=== PATIENT | male | born 1945 | race Caucasian/White ===

== ENCOUNTER 2021-06-19 17:33 | Inpatient (IN) | payer MEDICARE ==
[~2021-06-19] VITALS: Ht 177.8 cm; Wt 79.4 kg
[2021-06-19 19:12] LABS: HEMOGLOBIN 16.8 gm/dl (14.0-17.5); RED BLOOD COUNT 5.64 M/UL (4.20-5.50); WHITE BLOOD COUNT 25.3 K/UL (4.5-11.0)
--- NOTE | 2021-06-20 12:53 | NUR ---
dr. lombardi spoken to daughter and patient. patient decided not to go home today and requested to stay. concerned of pain management at home and use of sling and back brace.
--- NOTE | 2021-06-20 13:01 | NUR ---
notified dr. hanna and harjit of patient not leaving today
--- NOTE | 2021-06-21 01:47 | NUR ---
PT RECIEVED FROM MED SURG. PTS PUPILS ARE PINPOINT AND NON REACTIVE BILATERALLY, AND HE IS VOMITING. PT IS ALERT AND TALKING BUT STATES, " I FEEL LIKE IM GOING TO ." BP IS 197/[address] ROMAN AND STAT ORDER PLACED FOR HEAD CT WO CONTRAST.
--- NOTE | 2021-06-21 01:50 | NUR ---
PT TAKEN TO CT VIA BED WITH RN, TECH AND RESPIRATORY THERAPY. PT ON MONITOR AND 15L NRB MASK. PLACED BACK INTO ROOM AND ON MONITOR.
--- NOTE | 2021-06-21 02:10 | NUR ---
PT VOMITING AND BP IS 210/116. NOTIFIED DR ROMAN AND ORDERS RECIEVED AND PLACED.
--- NOTE | 2021-06-21 02:27 | NUR ---
0003 PATIENT STARTED TO FEEL NAUSEATED, I ELEVATED THE HEAD OF THE BED AND GAVE HIM AN EMESIS BAG. PATIENT WAS DIAPHORETIC AND BEGAN TO VOMIT. I OBTAINED VITALS AND A BGL ON PATIENT. BGL WAS 165 AND VS WERE WNL EXCEPT HIS O2 SAT WAS 72. A NON REBREATHER MASK WAS PLACED ON THE PATIENT AT 15L. DR ROMAN WAS NOTIFIED, A STAT CHEST XRAY WAS OBTAINED WERE ABG'S. DR ROMAN REQUESTED PATIENT BE TRANSFERED TO PCU. OREDERS WERE PUT IN AND PATIENT WAS TRANSFERED TO PCU.
[2021-06-21 11:18] LABS: HEMOGLOBIN 13.4 gm/dl (14.0-17.5); RED BLOOD COUNT 4.58 M/UL (4.20-5.50); WHITE BLOOD COUNT 17.3 K/UL (4.5-11.0)
[2021-06-21 11:45] LABS: BUN/CREATININE RATIO 17 (0-10)
[2021-06-22 04:20] LABS: HEMOGLOBIN 12.4 gm/dl (14.0-17.5); WHITE BLOOD COUNT 13.1 K/UL (4.5-11.0)
[2021-06-22 04:22] LABS: RED BLOOD COUNT 4.05 M/UL (4.20-5.50)
[2021-06-22 04:32] LABS: BUN/CREATININE RATIO 21 (0-10)
[2021-06-22] MEDS ORDERED: PERCOCET 5/325 T1 EA PO (14:32)
[2021-06-23 02:53] LABS: HEMOGLOBIN 11.9 gm/dl (14.0-17.5); RED BLOOD COUNT 4.13 M/UL (4.20-5.50)
[2021-06-23 03:20] LABS: BUN/CREATININE RATIO 22 (0-10)
[2021-06-23 03:29] LABS: WHITE BLOOD COUNT 9.7 K/UL (4.5-11.0)
== END 2021-06-23 12:54 | disposition home health service (06) | DRG 552 ==
LOC: ER1 17:33 → M/S 22:31 → CDU 22:31 → M/S 06-20 00:51 → PROG CARE 06-21 01:36
PROVIDERS: Internal Medicine; Physician Assistant; Physician Assistant Medical; ADMIT Surgery
DX: S32.020A Wedge compression fracture of second lumbar vertebra, initial encounter for closed fracture (principal); S22.031A Stable burst fracture of third thoracic vertebra, initial encounter for closed fracture; J93.9 Pneumothorax, unspecified; J98.11 Atelectasis; S22.041A Stable burst fracture of fourth thoracic vertebra, initial encounter for closed fracture; S22.070A Wedge compression fracture of T9-T10 vertebra, initial encounter for closed fracture; S22.080A Wedge compression fracture of T11-T12 vertebra, initial encounter for closed fracture; S22.021A Stable burst fracture of second thoracic vertebra, initial encounter for closed fracture; S22.051A Stable burst fracture of T5-T6 vertebra, initial encounter for closed fracture; S42.001A Fracture of unspecified part of right clavicle, initial encounter for closed fracture; Z20.822 Contact with and (suspected) exposure to COVID-19; R03.0 Elevated blood-pressure reading, without diagnosis of hypertension; W11.XXXA Fall on and from ladder, initial encounter; S42.101A Fracture of unspecified part of scapula, right shoulder, initial encounter for closed fracture; Y92.89 Other specified places as the place of occurrence of the external cause; Z88.0 Allergy status to penicillin; Z79.899 Other long term (current) drug therapy
CPT/HCPCS: 36415; 36600; 70450; 71045; 71250; 72125; 72128; 72131; 73030; 80048; 80053; 82803; 82962; 83735; 85025; 85027; 94664; 94760; 96374; 96375; 97162; 97164; 97167; 97168; 99284; G0378; J0360; J1335; J2270; J2405; J2550; J7030; Q9967; U0002